=== PATIENT | female | born 1970 | race Caucasian/White ===

== ENCOUNTER → 2019-12-22 | Outpatient (CLI) | payer BC ==
[~2019-12-22] MED LIST: CLARITIN-D 241 EAC1 PO; NASONEX17 GM NASAL; PROAIR HFA8.5 GM INH; ZESTORETIC 20-1 EAC3 PO
== END ==
LOC: LAB 11:12
PROVIDERS: ATTEND Orthopaedic Surgery Hand Surgery
DX: Z01.812 Encounter for preprocedural laboratory examination (principal); Z20.828 Contact with and (suspected) exposure to other viral communicable diseases